=== PATIENT | male | born 1990 | race African-American/Black ===

== ENCOUNTER 2018-05-16 11:50 | Emergency (ER) | payer SELFPAY ==
[2018-05-16 12:20] LABS: BASOPHILS % 0.5 (0.0-1.5); EOSINOPHILS % 1.9 % (0.0-6.8); MEAN CORPUSCULAR HEMOGLOBIN 29.7 pg (28.0-34.0); MEAN CORPUSCULAR VOLUME 85.9 fl (80.0-100.0); MONOCYTES % 6.3 % (0.0-11.0); NEUTROPHILS # 3.8 # k/uL (1.4-7.7)
[2018-05-16 12:37] LABS: eGFR (Non-African) > 60
[2018-05-16] MEDS ORDERED: ACETAMINOPHEN 500 MG TABLET PO ONE (12:46)
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
[2018-05-16 16:20] LABS: APPEARANCE,URINE CLEAR (CLEAR); CANNABINOIDS NON NEGATIVE ng/mL (< 50); COLOR,URINE YELLOW (YELLOW); METHYLENEDIOXYMETHAMPHETAMINE NEGATIVE ng/mL (<500); OCCULT BLOOD,URINE NEGATIVE (NEGATIVE); PH URINE 7.5 (5.0 - 8.0); UROBILINOGEN URINE 0.2 Eu (0.2-1.0)
[2018-05-16 20:30] VITALS: BP 112/68
== END 2018-05-16 13:35 | disposition home or self-care (01) ==
LOC: ED 11:50
DX: R56.9 Unspecified convulsions (principal); V49.50XA Passenger injured in collision with unspecified motor vehicles in traffic accident, initial encounter; Y92.9 Unspecified place or not applicable; Y93.9 Activity, unspecified; Y99.9 Unspecified external cause status; F12.10 Cannabis abuse, uncomplicated
CPT/HCPCS: 80053; 80171; 80377; 81002; 85025; 99284; G0481